=== PATIENT | female | born 1960 | race Caucasian/White ===

== ENCOUNTER → 2021-11-13 10:18 | Outpatient (CLI) | payer BC, SELFPAY ==
--- NOTE | ~2021-11-13 | MM_ITS ---
EXAMINATION: MM screening xavier BI w susie HISTORY: Screening mammogram TECHNIQUE: Craniocaudal and mediolateral oblique 3-D tomosynthesis images were obtained and synthetic 2-D images were generated. CAD analysis was submitted and interpreted. COMPARISON: 04/03/2017 bilateral screening mammogram BREAST PARENCHYMAL COMPOSITION: The breasts are extremely dense, which lowers the sensitivity of mamm ography. FINDINGS: There is no evidence of suspicious mass, calcification, or architectural distortion to sugg est malignancy in either breast. There has been no suspicious interval change. IMPRESSION: 1. No mammographic evidence of malignancy. 2. Recommend routine screening mammography in one year. BI-RADS Category 1: Negative Reviewed, dictated and finalized at location A.
== END ==
PROVIDERS: PCP Family Medicine; Visit Provider Family Medicine
DX: Z12.31 Encounter for screening mammogram for malignant neoplasm of breast (principal)
CPT/HCPCS: 77063; 77067

== ENCOUNTER 2023-12-17 13:46 | Outpatient (CLI) | payer BC, SELFPAY ==
--- NOTE | ~2023-12-17 | MM_ITS ---
EXAMINATION: MM screening xavier BI w susie HISTORY: Screening TECHNIQUE: Craniocaudal and mediolateral oblique 3-D tomosynthesis images were obtained and synthetic 2-D images were generated. CAD analysis was submitted and interpreted. COMPARISON: Comparison to multiple prior studies sequentially, with oldest reviewed study dated 09/2021. BREAST PARENCHYMAL COMPOSITION: Dense: The breasts are extremely dense, which lowers the sensitivity of mammography. FINDINGS: There is no evidence of suspicious mass, calcification, or architectural distortion to sugg est malignancy in either breast. There has been no suspicious interval change. IMPRESSION: 1. No mammographic evidence of malignancy. 2. Recommend routine screening mammography in one year. BI-RADS Category 1: Negative Reviewed, dictated and finalized at location B.
== END 2023-12-17 13:47 | disposition home or self-care (01) ==
PROVIDERS: PCP Family Medicine; Visit Provider Family Medicine
DX: Z12.31 Encounter for screening mammogram for malignant neoplasm of breast (principal)
CPT/HCPCS: 77063; 77067

== ENCOUNTER 2024-03-29 10:51 | Outpatient (CLI) | payer BC, SELFPAY ==
[2024-03-29 17:12] LABS: Kit Draw Collected
--- OUTSIDE RECORDS SUMMARY | 2024-03-31 17:34 | XMS_ITS | Referral Summary ---
Author Organization [facility] [employer] Address [address] [place] [address] Care Team Providers Care Multi Care Technician Name Role Phone Unavailable Primary Care Provider Unavailabl e Source Comments [facility],non-owned Affiliates and Associated Physician Practices is amultiple site organization consisting of ambulatory clinics and hospital sitesin [place], [place], [place] and [place]. This disclosure is being madepursuant to the Care Everywhere program and may not contain all information available regarding this patient. Last updated 17.[facility] Allergies No known active allergies Medications * Be aware that medications may not be up to date on this document. Alwaysverify current medications with the patient. Medication Sig Dispensed Refills Start Date End Date Status nebivolol (BYSTOLIC) 2.5 MG tablet Take 2.5 mg by mouth once daily Active pitavastatin (LIVALO) 2 MG tablet Take 2 mg by mouth once daily Active diazePAM (VALIUM) 5 MG tablet Take 1 tablet by mouth 3 times daily as needed (dizziness) 12 tablet 06/12/2018 Active ondansetron (ZOFRAN) 4 MG tablet Take 1 tablet by mouth every 6 hours as needed for Nausea/Vomiting 10 tablet 06/12/2018 Active Social History Tobacco Use Types Packs/Day Years Used Date Smoking Tobacco: Never Smokeless Tobacco: Never Alcohol Use Standard Drinks/Week Comments Yes 0 (1 standard drink = 0.6 oz pur e alcohol) occassionally Sex and Gender Information Value Date Recorded Sex Assigned at Not on file Gender Identity Not on file Sexual Orientation Not on file Last Filed Vital Signs Vital Sign Reading Time Taken Comments Blood Pressure 139/76 06/12/2018 4:48 AM CDT Pulse 71 06/12/2018 4:48 AM CDT Temperature 36.7 ??C (98 ??F) 06/12/2018 2:16 AM CDT Respiratory Rate 16 06/12/2018 4:48 AM CDT Oxygen Saturation 99% 06/12/2018 4:48 AM CDT Inhaled Oxygen Concentration - - Weight 49.9 kg (110 lb) 06/12/2018 2:16 AM CDT Height 160 cm (5' 3 ) 06/12/2018 2:16 AM CDT Body Mass Index 19.49 06/12/2018 2:16 AM CDT Plan of Treatment Not on file
--- OUTSIDE RECORDS SUMMARY | 2024-03-31 17:34 | XMS_ITS | Patient Health Summary ---
Author Organization [facility] [employer] Address [address] [place] [address] Care Team Providers Care Sand Mill Operator Facing Sand Name Role Phone Unavailable Primary Care Provider Unavailabl e Note from [facility],non-owned Affiliates and Associated Physician Practices is amultiple site organization consisting of ambulatory clinics and hospital sitesin [place], [place] and [place]. This disclosure is being madepursuant to the Care Everywhere program and may not contain all information available regarding this patient. Last updated 17.[facility] Allergies No known active allergies Medications * Be aware that medications may not be up to date on this document. Alwaysverify current medications with the patient. * nebivolol (BYSTOLIC) 2.5 MG tablet Take 2.5 mg by mouth once daily * pitavastatin (LIVALO) 2 MG tablet Take 2 mg by mouth once daily * diazePAM (VALIUM) 5 MG tablet(Started 06/12/2018) Take 1 tablet by mouth 3 times daily as needed (dizziness) * ondansetron (ZOFRAN) 4 MG tablet(Started 06/12/2018) Take 1 tablet by mouth every 6 hours as needed for Nausea/Vomiting Social History Tobacco Use Types Packs/Day Years [...]
--- OUTSIDE RECORDS SUMMARY | 2024-03-31 17:34 | XMS_ITS | Clinical Summary ---
Author Organization [facility] Address [address] [place] [address] Care Team Providers Care Rhia Name Role Phone Kait Lezama MD Primary Care Provider + Li Serrano MD Unavailable Pacheco Caballero MD Unavailable CapellanSantana manzano MD Unavailable [phone]- [phone] Yakov Light MD Unavailable Allergies No known active allergies Medications pitavastatin calcium (LIVALO) 2 mg tabletIndicatio ns:hyperlipidem ia Take 1 tablet (2 mg total) by mouth nightly Active zinc 50 mg tabletIndicatio ns:supplement Take 50 mg by mouth every morning Active cholecalciferol (VITAMIN D-3) 1,000 unit capsuleIndicati ons:Vitamin D Deficiency Take 1 capsule (1,000 Units total) by mouth every morning Active telmisartan (MICARDIS) 20 mg tablet Take 1 tablet (20 mg total) by mouth daily 03/13/2023 Active Active Problems Problem Noted Date Diagnosed Date Abdominal pain 04/30/2022 Assessment & Plan (05/01/2022 5:43 PM SPINNING LATHE OPERATOR AUTOMATIC): - p/w 1 day of sharp/intermittent abdominal pain after work out. CT imaging and laboratory analysis without obvious etiology for symptoms; no pancreatitis, biliary obstruction, abscess, thrombosis, etc. UA abnormal but without wbc and patient denies dysuria. Unclear exact etiology for pain but no indications for remaining hospitalized - Discussed with oncology and hepatobiliary surgery Hypertension 04/30/2022 Assessment & Plan (04/30/2022 10:12 PM SPINNING LATHE OPERATOR AUTOMATIC): -cont nebivilol Hyperlipidemia 04/30/2022 Assessment & Plan (04/30/2022 10:12 PM SPINNING LATHE OPERATOR AUTOMATIC): -cont statin Neuroendocrine cancer 03/19/2022 At risk of diabetes mellitus 02/18/2022 Primary neuroendocrine tumor of pancreas 022 Overview (02/14/2022): Added automatically from request for surgery [id number] Assessment & Plan (05/01/2022 5:43 PM SPINNING LATHE OPERATOR AUTOMATIC): - s/p tumor resection with pancreatectomy, distal splenectomy, smv resection with reanastamosis and liver ablation in 03/2022 - CT imaging showing liver lesion with radiology differential including vascular malformation vs mets. Discussed with oncology who will plan for outpatient liver MRI. Intraabdominal mass 12/30/2021 Overview (12/30/2021): Added automatically from request for surgery [id number] Immunizations Name Administration Dates Next Due Hib (PRP-T) 03/23/2022 Influenza, Quadrivalent, Mariana l Culture-based MDCK, Preservative Free, Antibiotic Free, Intramuscular 12/11/2021,12/12/2018 Influenza, Quadrivalent, Spl it, Preservative Free, Intramuscular 12/21/2020,12/27/2019,12/01/2017 Influenza, Trivalent, IM (MDV) 11/26/2016,2013 Influenza, Unspecified 12/11/2021 Meningococcal B, OMV (Bexsero) 03/23/2022 Meningococcal Conjugate (Menveo) 03/23/2022 Pneumococcal Conjugate Pcv20 03/23/2022 Tdap 05/07/2021 Surgical History Surgery Date Site/Laterality Comments COLONOSCOPY ANKLE SURGERY Medical History Medical History Date Comments Hypertension Hyperlipidemia Portal vein thrombosis Neuroendocrine tumor Family History Medical History Relation Name Comments Non-Hodgkin's Lymphoma Father at 80 with [place] Throat cancer Maternal Grandfather Cancer Mother unknown origin Emphysema Mother cause of Anesthesia problems Neg Hx Relation Name Status Comments Father Maternal Grandfather Alive Mother Social History Tobacco Use Types Packs/Day Years Used Date Smoking Tobacco: Never Smokeless Tobacco: Never Tobacco Cessation:Counseling Given: Not Answered AUDIT-C Answer Date Recorded Frequency of Alcohol Consumption Not on file 03/19/2022 Q2: How many drinks containi ng alcohol do you have on a typical day when you are drinking? Patient does not drink Frequency of Binge Drinking Not on file 03/09 Personal Safety Answer Date Recorded Getting School Help Needed Denies 03/13 Comments No Sex and Gender Information Value Date Recorded Sex Assigned at Not on file Legal Sex Female 12:07 AM SPINNING LATHE OPERATOR AUTOMATIC Gender Identity Female 01/09/2022 11:20 AM CDT Sexual Orientation Straight 01/09/2022 11 :20 AM CDT Obstetrics History Last Filed Vital Signs Vital Sign Reading Time Taken Comments Blood Pressure 119/81 10/13/2023 9:19 AM CDT Pulse 114 10/13/2023 9:19 AM CDT Temperature 36.7 ??C (98.1 ??F) 10/13/2023 9:19 AM CD T Respiratory Rate 16 10/13/2023 9:19 AM CDT Oxygen Saturation 100% 10/13/2023 9:19 AM CDT Inhaled Oxygen Concentration - - Weight 53.7 kg (118 lb 6.4 oz) 10/13/2023 9:19 A M CDT Height 160 cm (5' 3 ) 03/19/2023 6:27 AM SPINNING LATHE OPERATOR AUTOMATIC Body Mass Index 20.97 03/19/2023 6:27 AM SPINNING LATHE OPERATOR AUTOMATIC Plan of Treatment Health Maintenance Due Date Last Done Comments Breast Cancer Screening-Mammogram 1960 Cervical Cancer Screening 1960 Colon Cancer Screening-Colonoscopy 1959 Depression Screening 1959 Hepatitis C Screening 1960 Hepatitis B Screening 09/29/1977 Regular Well Visit/Exam 18-64 09/29/1977 Zoster Vaccine (1 of 2) 09/29/2009 Covid-19 Vaccine ( season) 2023 12/11/2021, 01/21/2021, 05/14/2020 Influenza Vaccine (#1) 2023 2, 12/11/2021, 12/21/2020, Additional history exists DTaP/Tdap/Td Vaccine (2 - Td or Tdap) 05/08/2031 05/07/2021 Pneumococcal vaccine <65 Aged Out 03/23/2022 No longer eligible based on patient's age to complete this topic Insurance [place] Advance Directives For more information, please contact: [phone] Documents on File Type Date Recorded Patient Fishing Accessories 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 Expl anation ADVANCE DIRECTIVE 03/19/2022 10:18 AM Rosa Maria r of Organizational Psychologist-Medical * Full Code (Latest Code Status on File) Date Activated Date Inactivated Comments 04/30/2022 11:11 PM 05/01/2022 7:47 PM * Full Code Date Activated Date Inactivated Comments 03/19/2022 5:39 PM 03/23/2022 5:08 PM * Full Code Date Activated Date Inactivated Comments 01/03/2022 9:08 AM 01/03/2022 6:07 PM Care Teams Rhia Relationship Specialty Start Date End Date Kait Lezama MD PCP - General Family Medicine 12/27/21 Li Serrano MD Fellow Endocrinology Diabetes & Metabolism 02/19/22 Pacheco Caballero MD [address] [facility] [place] [address] Consulting Physician Internal Medicine 02/19/22 Santana Capellan MD [address] [facility] [place] [address] Consulting Physician Transplant Hepatology 02/19/22 Yakov Light MD [address] [facility] [address], [address] [place] [address] Medical Oncology 03/24/23
--- OUTSIDE RECORDS SUMMARY | 2024-03-31 17:34 | XMS_ITS | Clinical Summary ---
Author Organization [facility] [employer] Address [address] [place] [address] Care Team Providers Care Mobile Home Mechanic Name Role Phone Unavailable Primary Care Provider Unavailabl e Source Comments [facility] [employer],non-owned Affiliates and Associated Physician Practices is amultiple site organization consisting of ambulatory clinics and hospital sitesin [place], [place], [place] and [place]. This disclosure is being madepursuant to the Care Everywhere program and may not contain all information available regarding this patient. Last updated 17.[employer] Allergies No known active allergies Medications * [...] 06/12/2018 2:16 AM CDT Plan of Treatment Health Maintenance Due Date Last Done Comments COLOGUARD (AGES 45-75) - COL ON CA SCREENING 1959 COLON MONITORING 1959 COLONOSCOPY - COLON CA SCREENING 1959 CT COLONOGRAPHY - COLON CA SCREENING 1959 Colorectal Cancer Screening 1959 FIT - COLON CA SCREENING 1959 FLEX SIG - COLON CA SCREENING 1959 MAMMOGRAM 1959 PAP SMEAR 1959 HIV SCREENING 09/29/1974 HEPATITIS C SCREENING 09/25/1977 DTAP/TDAP/TD VACCINES (1 - Tdap) 09/29/1978 PNEUMOCOCCAL VACCINE 50+ (1 of 1 - PCV) 09/29/2009 ZOSTER VACCINE (1 of 2) 09/29/2009 COVID-19 VACCINE ( - 2023-2 5 season) 2023 INFLUENZA VACCINE (#1) 2023 DEPRESSION SCREENING 03/09/2024 Respiratory Syncytial Virus (RSV) Vaccine Pt: or over 60 yrs (1 - 1-dose 75+ series) 09/29/2034 HEPATITIS B VACCINE Aged Out No longe r eligible based on patient's age to complete this topic HIB VACCINE Aged Out No longer eligi ble based on patient's age to complete this topic HPV VACCINE Aged Out No longer eligi ble based on patient's age to complete this topic MENINGOCOCCAL (Group B) VACCINE Aged Out No longer eligible based on patient's age to complete this topic MENINGOCOCCAL VACCINE Aged Out No jose luda eligible based on patient's age to complete this topic PNEUMOCOCCAL VACCINE Aged Out No long er eligible based on patient's age to [place] [place] [address]
--- OUTSIDE RECORDS SUMMARY | 2024-03-31 17:34 | XMS_ITS ---
Author Organization [facility] Address [address] [place] [address] Care Team Providers Care Linen Sorter Name Role Phone Kait Lezama MD Primary Care Provider + Li Serrano MD Unavailable Pacheco Caballero MD Unavailable CapellanSanatna manzano MD Unavailable [phone]- [phone] Yakov Light MD Unavailable Active Problems Problem Noted Date Diagnosed Date Abdominal pain 04/30/2022 Assessment & Plan (05/01/2022 5:43 PM CUTTER BARREL DRUM): - p/w 1 day of sharp/intermittent abdominal pain after work out. CT imaging and laboratory analysis without obvious etiology for symptoms; no pancreatitis, biliary obstruction, abscess, thrombosis, etc. UA abnormal but without wbc and patient denies dysuria. Unclear exact etiology for pain but no indications for remaining hospitalized - Discussed with oncology and hepatobiliary surgery Hypertension 04/30/2022 Assessment & Plan (04/30/2022 10:12 PM CUTTER BARREL DRUM): -cont nebivilol Hyperlipidemia 04/30/2022 Assessment & Plan (04/30/2022 10:12 PM CUTTER BARREL DRUM): -cont statin Neuroendocrine cancer 03/19/2022 At risk of diabetes mellitus 02/18/2022 Primary neuroendocrine tumor of pancreas 022 Overview (02/14/2022): Added automatically from request for surgery [id number] Assessment & Plan (05/01/2022 5:43 PM CUTTER BARREL DRUM): - s/p tumor resection with pancreatectomy, distal splenectomy, smv resection with reanastamosis and liver ablation in 03/2022 - CT imaging showing liver lesion with radiology differential including vascular malformation vs mets. Discussed with oncology who will plan for outpatient liver MRI. Intraabdominal mass 12/30/2021 Overview (12/30/2021): Added automatically from request for surgery [id number] Current Oncology Plans No current plan information found. Past Plans No past plan information found. Radiation Treatments * No radiation treatments are documented for this patient in [facility]. Treatments may have been administered in another system. Lifetime Dose Tracking * Chemical Lifetime Dose Automatic Entry Manual Entr y DLP 237 mGycm 237 mGycm 0 mGycm
--- OUTSIDE RECORDS SUMMARY | 2024-03-31 17:34 | XMS_ITS | Referral Summary ---
Author Organization [facility] Address [address] [place] [address] Care Team Providers Care Commercial Administrator Name Role Phone Kait Lezama MD Primary Care Provider + Li Serrano MD Unavailable Pacheco Caballero MD Unavailable CapellanSantana manzano MD Unavailable [phone]- [phone] Yakov Light MD Unavailable Allergies No known [...] 04/30/2022 Assessment & Plan (05/01/2022 5:43 PM ONLINE SERVICES MANAGER): - p/w 1 day of sharp/intermittent abdominal pain after work out. CT imaging and laboratory analysis without obvious etiology for symptoms; no pancreatitis, biliary obstruction, abscess, thrombosis, etc. UA abnormal but without wbc and patient denies dysuria. Unclear exact etiology for pain but no indications for remaining hospitalized - Discussed with oncology and hepatobiliary surgery Hypertension 04/30/2022 Assessment & Plan (04/30/2022 10:12 PM ONLINE SERVICES MANAGER): -cont nebivilol Hyperlipidemia 04/30/2022 Assessment & Plan (04/30/2022 10:12 PM ONLINE SERVICES MANAGER): -cont statin Neuroendocrine cancer 03/19/2022 At risk of diabetes mellitus 02/18/2022 Primary neuroendocrine tumor of pancreas 022 Overview (02/14/2022): Added automatically from request for surgery [id number] Assessment & Plan (05/01/2022 5:43 PM ONLINE SERVICES MANAGER): - s/p tumor resection with pancreatectomy, distal splenectomy, smv resection with reanastamosis and liver ablation in 03/2022 - CT imaging showing liver lesion with radiology differential including vascular malformation vs mets. Discussed with oncology who will plan for outpatient liver MRI. Intraabdominal mass 12/30/2021 Overview (12/30/2021): Added automatically from request for surgery [id number] Immunizations Name Administration Dates Next Due Hib (PRP-T) 03/23/2022 Influenza, Quadrivalent, Mariana l Culture-based MDCK, Preservative Free, Antibiotic Free, Intramuscular 12/11/2021,12/12/2018 Influenza, Quadrivalent, Spl it, Preservative Free, Intramuscular 12/21/2020,12/27/2019,12/01/2017 Influenza, Trivalent, IM (MDV) 11/26/2016,2013 Influenza, Unspecified 12/11/2021 Meningococcal B, OMV (Bexsero) 03/23/2022 Meningococcal Conjugate (Menveo) 03/23/2022 Pneumococcal Conjugate Pcv20 03/23/2022 Tdap 05/07/2021 Social History Tobacco Use Types Packs/Day Years [...] on file Legal Sex Female 12:07 AM ONLINE SERVICES MANAGER Gender Identity Female 01/09/2022 11:20 AM CDT Sexual Orientation Straight 01/09/2022 11 :20 AM CDT Last Filed Vital Signs Vital Sign Reading [...] cm (5' 3 ) 03/19/2023 6:27 AM ONLINE SERVICES MANAGER Body Mass Index 20.97 03/19/2023 6:27 AM ONLINE SERVICES MANAGER Plan of Treatment Not on file [place] [address] CHOICE [facility] [place] Advance Directives For more information, please contact: [phone] Documents on File Type Date Recorded 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 ADVANCE DIRECTIVE 03/19/2022 10:18 AM Rosa Maria r of Director Medical Safety-Medical * Full Code (Latest Code Status on File) Date Activated Date Inactivated Comments 04/30/2022 11:11 PM 05/01/2022 7:47 PM * Full Code Date Activated Date Inactivated Comments 03/19/2022 5:39 PM 03/23/2022 5:08 PM * Full Code Date Activated Date Inactivated Comments 01/03/2022 9:08 AM 01/03/2022 6:07 PM Care Teams Commercial Administrator Relationship Specialty Start Date End Date Kait Lezama MD PCP - General Family Medicine 12/27/21 Li Serrano MD Fellow Endocrinology Diabetes & Metabolism 02/19/22 Pacheco Caballero MD [address] [facility] [place] [address] Consulting Physician Internal Medicine 02/19/22 Santana Capellan MD [address] [facility] [place] [address] Consulting Physician Transplant Hepatology 02/19/22 Yakov Light MD [address] [facility] [address] [facility], [address] [place] [address] Medical Oncology 03/24/23
== END 2024-03-29 10:52 | disposition home or self-care (01) ==
LOC: ANHGOSHLAB 10:52
PROVIDERS: PCP Family Medicine; Visit Provider Family Medicine
DX: R00.2 Palpitations (principal); E78.2 Mixed hyperlipidemia
CPT/HCPCS: 36415

== ENCOUNTER 2024-04-06 12:40 | Outpatient (CLI) | payer BC, SELFPAY ==
--- OUTSIDE RECORDS SUMMARY | 2024-04-06 13:30 | XMS_ITS | Patient Health Summary ---
Author Organization [facility] [employer] Address [address] [place] [address] Care Team Providers Care Cane Splicer Name Role Phone Unavailable Primary Care Provider Unavailabl e Note from [facility],non-owned Affiliates and Associated Physician Practices is amultiple site organization consisting of ambulatory clinics and hospital sitesin [place], [place], [place] and [place]. This disclosure is being madepursuant to the Care Everywhere program and may not contain all information available regarding this patient. Last updated 17.[facility] [employer] Allergies No known active allergies Medications * [...]
--- OUTSIDE RECORDS SUMMARY | 2024-04-06 13:30 | XMS_ITS | Referral Summary ---
Author Organization [facility] [employer] Address [address] [place] [address] Care Team Providers Care Vice President Mission Integration Name Role Phone Unavailable Primary Care Provider Unavailabl e Source Comments [facility] [employer],non-owned Affiliates and Associated Physician Practices is amultiple site organization consisting of ambulatory clinics and hospital sitesin [place], [place], [place] and [place]. This disclosure is being madepursuant to the Care Everywhere program and may not contain all information available regarding this patient. Last updated 17.[facility] [employer] Allergies No known active allergies Medications * [...]
--- OUTSIDE RECORDS SUMMARY | 2024-04-06 13:30 | XMS_ITS | Clinical Summary ---
Author Organization [facility] [employer] Address [address] [place] [address] Care Team Providers Care Analysis Evaluator Name Role Phone Unavailable Primary Care Provider Unavailabl e Source Comments [facility] [employer],non-owned Affiliates and Associated Physician Practices is amultiple site organization consisting of ambulatory clinics and hospital sitesin [place], [place], [place] and [place]. This disclosure is being madepursuant to the Care Everywhere program and may not contain all information available regarding this patient. Last updated 17.[employer] [facility] Allergies No known active allergies Medications * [...] to [place] [address]
--- OUTSIDE RECORDS SUMMARY | 2024-04-06 13:31 | XMS_ITS | Clinical Summary ---
Author Organization [facility] Address [address] [place] [address] Care Team Providers Care Chip Crusher Operator Name Role Phone Kait Lezama MD Primary Care Provider + Li Serrano MD Unavailable Pacheco Caballero MD Unavailable CapellanSantana manzano MD Unavailable [phone]- [phone] Yakov Light MD Unavailable Allergies No known [...] 04/30/2022 Assessment & Plan (05/01/2022 5:43 PM TYING MACHINE OPERATOR LUMBER): - p/w 1 day of sharp/intermittent abdominal pain after work out. CT imaging and laboratory analysis without obvious etiology for symptoms; no pancreatitis, biliary obstruction, abscess, thrombosis, etc. UA abnormal but without wbc and patient denies dysuria. Unclear exact etiology for pain but no indications for remaining hospitalized - Discussed with oncology and hepatobiliary surgery Hypertension 04/30/2022 Assessment & Plan (04/30/2022 10:12 PM TYING MACHINE OPERATOR LUMBER): -cont nebivilol Hyperlipidemia 04/30/2022 Assessment & Plan (04/30/2022 10:12 PM TYING MACHINE OPERATOR LUMBER): -cont statin Neuroendocrine cancer 03/19/2022 At risk of diabetes mellitus 02/18/2022 Primary neuroendocrine tumor of pancreas 022 Overview (02/14/2022): Added automatically from request for surgery [id number] Assessment & Plan (05/01/2022 5:43 PM TYING MACHINE OPERATOR LUMBER): - s/p tumor resection with pancreatectomy, distal splenectomy, smv resection with reanastamosis and liver ablation in 03/2022 - CT imaging showing liver lesion with radiology differential including vascular malformation vs mets. Discussed with oncology who will plan for outpatient liver MRI. Intraabdominal mass 12/30/2021 Overview (12/30/2021): Added automatically from request for surgery [id number] Immunizations Name Administration Dates Next Due Hib [...] Comments Non-Hodgkin's Lymphoma Father at 80 with [place] Throat cancer Maternal Grandfather Cancer Mother unknown [...] on file Legal Sex Female 12:07 AM TYING MACHINE OPERATOR LUMBER Gender Identity Female 01/09/2022 11:20 AM CDT [...] cm (5' 3 ) 03/19/2023 6:27 AM TYING MACHINE OPERATOR LUMBER Body Mass Index 20.97 03/19/2023 6:27 AM TYING MACHINE OPERATOR LUMBER Plan of Treatment Health Maintenance Due Date [...] Advance Directives For more information, please contact: [phone] Documents on File Type Date Recorded Patient Pharmacy Operations Manager Expl anation ADVANCE DIRECTIVE 03/19/2022 10:18 AM Rosa Maria r of Computer Information Science Professor-Medical * Full Code (Latest Code Status on File) Date Activated Date Inactivated Comments 04/30/2022 11:11 PM 05/01/2022 7:47 PM * Full Code Date Activated Date Inactivated Comments 03/19/2022 5:39 PM 03/23/2022 5:08 PM * Full Code Date Activated Date Inactivated Comments 01/03/2022 9:08 AM 01/03/2022 6:07 PM Care Teams Chip Crusher Operator Relationship Specialty Start Date End Date Kait Lezama MD PCP - General Family Medicine 12/27/21 Li Serrano MD Fellow Endocrinology Diabetes & Metabolism 02/19/22 Pacheco Caballero MD 1 [facility] [place] [address] Consulting Physician Internal Medicine 02/19/22 Santana Capellan MD 1 [facility] [place] [address] Consulting Physician Transplant Hepatology 02/19/22 Yakov Light MD [address] [facility], [address] [place] [address] Medical Oncology 03/24/23
--- OUTSIDE RECORDS SUMMARY | 2024-04-06 13:31 | XMS_ITS ---
Author Organization [facility] Address [address] [place] [address] Care Team Providers Care Product Marketer Name Role Phone Kait Lezama MD Primary Care Provider + Li Serrano MD Unavailable Pacheco aCballero MD Unavailable CapellanSantana manzano MD Unavailable [phone]- [phone] Yakov Light MD Unavailable Active Problems Problem Noted Date Diagnosed Date Abdominal pain 04/30/2022 Assessment & Plan (05/01/2022 5:43 PM SUPERVISOR FILM PROCESSING): - p/w 1 day of sharp/intermittent abdominal pain after work out. CT imaging and laboratory analysis without obvious etiology for symptoms; no pancreatitis, biliary obstruction, abscess, thrombosis, etc. UA abnormal but without wbc and patient denies dysuria. Unclear exact etiology for pain but no indications for remaining hospitalized - Discussed with oncology and hepatobiliary surgery Hypertension 04/30/2022 Assessment & Plan (04/30/2022 10:12 PM SUPERVISOR FILM PROCESSING): -cont nebivilol Hyperlipidemia 04/30/2022 Assessment & Plan (04/30/2022 10:12 PM SUPERVISOR FILM PROCESSING): -cont statin Neuroendocrine cancer 03/19/2022 At risk of diabetes mellitus 02/18/2022 Primary neuroendocrine tumor of pancreas 022 Overview (02/14/2022): Added automatically from request for surgery [id number] Assessment & Plan (05/01/2022 5:43 PM SUPERVISOR FILM PROCESSING): - s/p tumor resection with pancreatectomy, distal splenectomy, smv resection with reanastamosis and liver ablation in 03/2022 - CT imaging showing liver lesion with radiology differential including vascular malformation vs mets. Discussed with oncology who will plan for outpatient liver MRI. Intraabdominal mass 12/30/2021 Overview (12/30/2021): Added automatically from request for surgery [id number] Current Oncology Plans No current plan information found. Past Plans No past plan information found. Radiation Treatments * No radiation treatments are documented for this patient in [facility]. Treatments may have been administered in another system. Lifetime Dose Tracking * Chemical Lifetime Dose Automatic Entry Manual Entr y DLP 237 mGycm 237 mGycm 0 mGycm
--- OUTSIDE RECORDS SUMMARY | 2024-04-06 13:31 | XMS_ITS | Referral Summary ---
Author Organization [facility] Address [address] [place] [address] Care Team Providers Care House Mover Name Role Phone Kait Lezama MD Primary Care Provider + Li Serrano MD Unavailable Pcaheco Caballero MD Unavailable CapellanSantana manzano MD Unavailable [phone]- [phone] Yakov Light MD Unavailable Allergies No known [...] 04/30/2022 Assessment & Plan (05/01/2022 5:43 PM ORNAMENT SETTER): - p/w 1 day of sharp/intermittent abdominal pain after work out. CT imaging and laboratory analysis without obvious etiology for symptoms; no pancreatitis, biliary obstruction, abscess, thrombosis, etc. UA abnormal but without wbc and patient denies dysuria. Unclear exact etiology for pain but no indications for remaining hospitalized - Discussed with oncology and hepatobiliary surgery Hypertension 04/30/2022 Assessment & Plan (04/30/2022 10:12 PM ORNAMENT SETTER): -cont nebivilol Hyperlipidemia 04/30/2022 Assessment & Plan (04/30/2022 10:12 PM ORNAMENT SETTER): -cont statin Neuroendocrine cancer 03/19/2022 At risk of diabetes mellitus 02/18/2022 Primary neuroendocrine tumor of pancreas 022 Overview (02/14/2022): Added automatically from request for surgery [id number] Assessment & Plan (05/01/2022 5:43 PM ORNAMENT SETTER): - s/p tumor resection with pancreatectomy, distal splenectomy, smv resection with reanastamosis and liver ablation in 03/2022 - CT imaging showing liver lesion with radiology differential including vascular malformation vs mets. Discussed with oncology who will plan for outpatient liver MRI. Intraabdominal mass 12/30/2021 Overview (12/30/2021): Added automatically from request for surgery [id number] Immunizations Name Administration Dates Next Due Hib [...] on file Legal Sex Female 12:07 AM ORNAMENT SETTER Gender Identity Female 01/09/2022 11:20 AM CDT [...] cm (5' 3 ) 03/19/2023 6:27 AM ORNAMENT SETTER Body Mass Index 20.97 03/19/2023 6:27 AM ORNAMENT SETTER Plan of Treatment Not on file [place] [address] CHOICE [facility] [place] Advance Directives For more information, please contact: [phone] Documents on File Type Date Recorded Patient Electronic Resources Librarian Expl anation ADVANCE DIRECTIVE 03/19/2022 10:18 AM Rosa Maria r of Computer Mechanic-Medical * Full Code (Latest Code Status on File) Date Activated Date Inactivated Comments 04/30/2022 11:11 PM 05/01/2022 7:47 PM * Full Code Date Activated Date Inactivated Comments 03/19/2022 5:39 PM 03/23/2022 5:08 PM * Full Code Date Activated Date Inactivated Comments 01/03/2022 9:08 AM 01/03/2022 6:07 PM Care Teams House Mover Relationship Specialty Start Date End Date Kait Lezama MD PCP - General Family Medicine 12/27/21 Li Serrano MD Fellow Endocrinology Diabetes & Metabolism 02/19/22 Pacheco Caballero MD 1 [facility] [place] [address] Consulting Physician Internal Medicine 02/19/22 Santana Capellan MD [address] [facility] [place] [address] Consulting Physician Transplant Hepatology 02/19/22 Yakov Light MD [address] [facility], [address] [place] [address] Medical Oncology 03/24/23
--- NOTE | 2024-04-19 16:59 | WPDHOLTEREM ---
Holter/Event Monitor Holter/Event Monitor Date of procedure: 04/06/24 Holter/Event Procedure: 3-7 Day Holter Monitor Indications: Palpitations Conclusion: 1. 7 days holter monitor on 04/06/24. 2. Predominant rhythm is sinus rhythm. HR range 51-141 bpm; average HR 78 bpm. 3. There are rare premature supraventricular complexes, rare supraventricular couplets, and rare supraventricular triplets. There are 2 episodes of atrial tachycardia, fastest at 141 bpm and longest lasting 16 beats. 4. There are rare premature ventricular complexes. No ventricular tachycardia. 5. No significant pauses greater than 3 seconds. 6. No symptoms available for correlation.
== END 2024-04-06 12:41 | disposition home or self-care (01) ==
PROVIDERS: PCP Family Medicine; Visit Provider Family Medicine
DX: I47.10 Supraventricular tachycardia, unspecified (principal); I49.1 Atrial premature depolarization; I49.8 Other specified cardiac arrhythmias; I49.3 Ventricular premature depolarization; R00.2 Palpitations
CPT/HCPCS: 93242

== ENCOUNTER 2024-12-16 07:31 | Outpatient (CLI) | payer MEDICARE, SELFPAY ==
--- NOTE | ~2024-12-16 | MM_ITS ---
EXAMINATION: MM screening xavier BI w susie HISTORY: Screening TECHNIQUE: Craniocaudal and mediolateral oblique 3-D tomosynthesis images were obtained and synthetic 2-D images were generated. CAD analysis was submitted and interpreted. COMPARISON: Comparison to multiple prior studies sequentially, with oldest reviewed study dated , 04/03/2017 BREAST PARENCHYMAL COMPOSITION: The breasts are extremely dense, which lowers the sensitivity of mammography. FINDINGS: There is no evidence of suspicious mass, calcification, or architectural distortion to suggest malignancy in either breast. IMPRESSION: 1. No mammographic evidence of malignancy. 2. Recommend routine screening mammography in one year. BI-RADS Category 1: Negative Reviewed, dictated and finalized at location B.
== END 2024-12-16 07:32 | disposition home or self-care (01) ==
LOC: MICIMG 07:34
PROVIDERS: PCP Family Medicine; Visit Provider Family Medicine
DX: Z12.31 Encounter for screening mammogram for malignant neoplasm of breast (principal)
CPT/HCPCS: 77063; 77067